=== PATIENT | male | born 1935 | race Caucasian/White ===

== ENCOUNTER 2019-04-28 12:41 | Emergency (ER) | payer MEDICARE, OTHER, SELFPAY ==
[2019-04-28 12:57] VITALS: BP 105/87; PULSE 78; RESP 20; TEMP 37.1; O2SAT 95
--- NOTE | 2019-04-28 13:05 | ED.SKABFB ---
HPI - Skin/Abscess/Foreign Bdy General Chief complaint: Skin/Abscess/Foreign Body Stated complaint: Shingles Source: patient Mode of arrival: ambulatory Limitations: no limitations History of Present Illness HPI narrative: The patient, who is a nonsmoker/ occ drinker with IRDM, presents with 2 day history of red, raised spots that cover the lateral side of his upper LLE. Pt states the spot originally began as a pimple and spread. He notes pain to the area. Pt denies any fever, or recent illness. MD complaint: rash Onset (ago): day(s) (2) Location: LLE (upper) Pain Consistency: constant Associated symptoms: denies other symptoms Related Data Home Medications Medication Instructions Recorded Confirmed fluticasone propionate 50 1 - 2 spray NASAL DAILY PRN ml 03/05/19 04/28/19 mcg/actuation nasal spray,suspension insulin glargine 100 unit/mL See Rx Instructions .ROUTE .COMPLEX 03/05/19 04/28/19 subcutaneous solution insulin syringe-needle U-100 0.3 #100 each 03/05/19 mL 30 gauge x 15/64 loratadine 10 mg tablet 10 mg PO DAILY 03/05/19 04/28/19 metformin 500 mg tablet 500 mg PO TID 03/05/19 04/28/19 omeprazole 20 mg capsule,delayed See Rx Instructions .ROUTE .COMPLEX 03/05/19 04/28/19 release simvastatin 10 mg tablet 10 mg PO .COMPLEX 03/05/19 04/28/19 Allergies Allergy/AdvReac Type Severity Reaction Status Date / Time No Known Allergies Allergy Unknown Verified 09/16/15 13:14 Review of Systems Review of Systems: Narrative: General/Constitutional: Denies: weight loss,fever Eyes: Denies: Redness,discharge Ears/Nose/Throat: Denies: Epistaxis,ear discharge Respiratory: Denies: Hemoptysis Gastrointestinal: Denies: Vomiting, Bleeding-rectal Skin: Denies: eruption Neurologic: Denies: Focal Weakness,Sz Hematologic: Denies: Petechiae/Purpura Psychiatric: Denies: Suicidal ideation All Other Systems: Reviewed and Negative All systems reviewed & are unremarkable except as noted in HPI and below PMFSH Social History Social History Smoking status: Former smoker Alcohol intake: never Gender identity (if verbalized by the patient): Male Comments At time of signature, agree with nursing past medical, surgical, social and family history. There is no relevant family history pertinent to the presenting complaint. Exam Narrative: Exam Narrative: General Appearance: Well-nourished Head: Normocephalic Eye: PERRLA, Conjunctiva clear Ear: External ear normal Nose: Normal nose, Nare clear Mouth/Throat: Normal appearing Neck Exam: Supple Respiratory: Airway patent, No respiratory distress Musculoskeletal: Moves all extremities, Non tender Skin: Warm, Dry ; classic, maroon-red papulovesicular eruption on the left lateral thigh extending distally. Neurological: A&O x3 Psychiatric: Normal mood, Normal affect Course Vital Signs Vital signs: Vital Signs Temperature 98.8 F 04/28/19 12:57 Pulse Rate 78 04/28/19 12:57 Respiratory Rate 04/28/19 12:57 Blood Pressure 105/87 04/28/19 12:57 Pulse Oximetry 95 04/28/19 12:57 Temperature 98.8 F 04/28/19 12:57 Pulse Rate 78 04/28/19 12:57 Respiratory Rate 04/28/19 12:57 Blood Pressure 105/87 04/28/19 12:57 Pulse Oximetry 95 04/28/19 12:57 Discharge Plan Discharge Clinical Impression: Shingles Qualifiers: Herpes zoster complications: without complications Qualified Code(s): B02.9 - Zoster without complications Patient Disposition: Home, Self-Care Condition: Stable Instructions: Shingles (ED) Prescriptions: New prednisone 20 mg tablet 60 mg PO DAILY Qty: 9 RF: 0 valacyclovir [Valtrex] 1 gram tablet 1,000 mg PO TID Qty: 20 RF: 0 acetaminophen-codeine [Tylenol-Codeine #3] 300-30 mg tablet 1 tablet PO Q4H PRN (Reason: pain) Qty: 14 RF: 0 No Action fluticasone propionate [Flonase Allergy Relief] 50 mcg/actuation spr
== END 2019-04-28 13:21 | disposition home or self-care (01) ==
PROVIDERS: Emergency Provider Emergency Medicine; PCP Emergency Medicine
DX: B02.9 Zoster without complications (principal); Z86.73 Personal history of transient ischemic attack (TIA), and cerebral infarction without residual deficits; I25.10 Atherosclerotic heart disease of native coronary artery without angina pectoris; E78.00 Pure hypercholesterolemia, unspecified; I10 Essential (primary) hypertension; K21.9 Gastro-esophageal reflux disease without esophagitis; M19.90 Unspecified osteoarthritis, unspecified site; E11.9 Type 2 diabetes mellitus without complications
CPT/HCPCS: 99213; G0463

== ENCOUNTER 2019-06-12 12:01 | Emergency (ER) | payer MEDICARE, OTHER, SELFPAY ==
[2019-06-12 12:18] VITALS: BP 169/59; PULSE 71; RESP 18; TEMP 36.6; O2SAT 95
--- NOTE | 2019-06-12 13:01 | ED.SKABFB ---
HPI - Skin/Abscess/Foreign Bdy General Chief complaint: Skin/Abscess/Foreign Body Stated complaint: abscess Time Seen by Provider: 06/12/19 12:55 Source: patient and RN notes reviewed Mode of arrival: ambulatory Limitations: no limitations History of Present Illness HPI narrative: 84-year male presents with concern for possible access on his left buttock. Reports noticing it 4 to 5 days ago. Reports he has been dealing with shingles and has been sitting a lot. He denies fever, general malaise, drainage. Denies any change in bowel habits. MD complaint: abscess/boil Related Data Home Medications Medication Instructions Recorded Confirmed fluticasone propionate 50 1 - 2 spray NASAL DAILY PRN ml 03/05/19 04/28/19 mcg/actuation nasal spray,suspension insulin glargine 100 unit/mL See Rx Instructions .ROUTE .COMPLEX 03/05/19 04/28/19 subcutaneous solution insulin syringe-needle U-100 0.3 #100 each 03/05/19 mL 30 gauge x 15/64 loratadine 10 mg tablet 10 mg PO DAILY 03/05/19 04/28/19 metformin 500 mg tablet 500 mg PO TID 03/05/19 04/28/19 omeprazole 20 mg capsule,delayed See Rx Instructions .ROUTE .COMPLEX 03/05/19 04/28/19 release simvastatin 10 mg tablet 10 mg PO .COMPLEX 03/05/19 04/28/19 Allergies Allergy/AdvReac Type Severity Reaction Status Date / Time No Known Allergies Allergy Unknown Verified 09/16/15 13:14 Review of Systems Review of Systems: Narrative: CONSTITUTIONAL: Denies malaise, chills, sweats, or fever. CARDIOVASCULAR: Denies chest pain, palpitations, or edema. RESPIRATORY: Denies cough or dyspnea. GASTROINTESTINAL: Denies diarrhea, bloody, or mucous stools. SKIN: Reports abscess on left buttock MUSCULOSKELETAL: Denies myalgia. All systems reviewed & are unremarkable except as noted in HPI and below PMFSH Past Medical History Medical History Diabetes mellitus HLD (hyperlipidemia) Social History Social History Smoking status: Former smoker Alcohol intake: never Gender identity (if verbalized by the patient): Male Comments At time of signature, agree with nursing past medical, surgical, social and family history. There is no relevant family history pertinent to the presenting complaint Exam Narrative: Exam Narrative: GENERAL: Well-appearing, well-nourished, and in no acute distress. HEAD: Normocephalic, atraumatic. EYES: PERRLA, conjunctivae clear, and EOMI. No nystagmus. ENT: Mucous membranes moist. NECK: Supple. CHEST: No respiratory distress. Clear to auscultation. No bony deformities, no asymmetry. Speaks in full sentences. HEART: Regular rate and rhythm. No murmur heard. Normal peripheral pulses. Capillary refill less than 2 seconds SKIN: Warm, dry. 5 cm area of erythema with 3 cm area of induration to the left buttock no fluctuation noted, no involvement of anus noted, palpable approximately centimeters deep, center scab noted. NEURO: Alert and oriented x3. PSYCH: Normal mood and affect Course Course Emergency Course: Patient is aware of diagnosis, understands and agrees to treatment plan. Anticipatory guidance given. Patient agrees to follow-up as directed and is aware of reasons to seek care at the emergency department. Portions of this record may have been created with voice recognition software Vital Signs Vital signs: Vital Signs Temperature 97.8 F 06/12/19 12:18 Pulse Rate 71 06/12/19 12:18 Respiratory Rate 18 06/12/19 12:18 Blood Pressure 169/59 H 06/12/19 12:18 Pulse Oximetry 95 06/12/19 12:18 Temperature 97.8 F 06/12/19 12:18 Pulse Rate 71 06/12/19 12:18 Respiratory Rate 18 06/12/19 12:18 Blood Pressure 169/59 H 06/12/19 12:18 Pulse Oximetry 95 06/12/19 12:18 Reviewed. MDM - Skin/Abscess/Foreign Bdy MDM Narrative Medical decision making narrative: Exam findings show no acute concerns or changes; patie
== END 2019-06-12 13:17 | disposition home or self-care (01) ==
PROVIDERS: Emergency Provider Nurse Practitioner
DX: L02.31 Cutaneous abscess of buttock (principal); E11.9 Type 2 diabetes mellitus without complications; E78.5 Hyperlipidemia, unspecified; Z87.891 Personal history of nicotine dependence; Z79.4 Long term (current) use of insulin; Z79.84 Long term (current) use of oral hypoglycemic drugs; Z86.73 Personal history of transient ischemic attack (TIA), and cerebral infarction without residual deficits; I25.10 Atherosclerotic heart disease of native coronary artery without angina pectoris; K21.9 Gastro-esophageal reflux disease without esophagitis; M19.90 Unspecified osteoarthritis, unspecified site
CPT/HCPCS: 99213; G0463

== ENCOUNTER 2021-05-08 13:17 | Inpatient (IN) | payer MEDICARE, OTHER, SELFPAY ==
[2021-05-08] VITALS (8 sets, daily range): BP systolic 122–149; BP diastolic 54–93; PULSE 90–110; RESP 20–36; TEMP 36–36.1; O2SAT 85–98
--- NOTE | ~2021-05-08 | XR_ITS ---
EXAMINATION: XR chest 1V portable INDICATION: Cough and shortness of breath TECHNIQUE: Portable AP chest at 1405 hours COMPARISON: 09/09/2015 FINDINGS: Cardiomegaly is noted. There are patchy interstitial and airspace opacities. No pleural eff usion or pneumothorax is identified. The visualized osseous structures are unremarkable. IMPRESSION: 1. Patchy interstitial and airspace opacities consistent with atelectasis and/or pneumonia and/or pul monary edema. 2. Cardiomegaly. Reviewed, dictated and finalized at location B. IMPRESSION: 1. Patchy interstitial and airspace opacities consistent with atelectasis and/o r pneumonia and/or pulmonary edema. 2. Cardiomegaly.
--- NOTE | ~2021-05-08 | XR_ITS ---
EXAMINATION: XR chest 1V portable DATE: 05/12/2021 07:15 INDICATION: Pneumonia TECHNIQUE: frontal view of the chest was obtained. COMPARISON: Chest radiograph and CT dated 05/08/2021 FINDINGS: Increased lucency in the upper lung zones with architectural distortion consistent with emphysema. Re ticular and airspace opacities in the bilateral mid and lower lung zones. No pleural effusion or pneu mothorax. The cardiomediastinal silhouette is normal. IMPRESSION: 1. Slight improvement in opacities in the bilateral mid and lower lung zones consistent with improvin g pulmonary edema and/or pneumonia superimposed over emphysema. Reviewed, dictated and finalized at location A. IMPRESSION: 1. Slight improvement in opacities in the bilateral mid and lower lung zones co nsistent with improving pulmonary edema and/or pneumonia superimposed over emph ysema.
--- NOTE | ~2021-05-08 | CT_ITS ---
EXAMINATION: CTA chest PE protocol EXAM DATE: 05/08/2021 18:54 INDICATION: Sudden shortness of breath. TECHNIQUE: Spiral CTA of the chest (pulmonary arteries) was performed with 100 cc Omnipaque 350 intr avenous contrast injection. Images were acquired during the pulmonary arterial phase. Coronal maxi mum intensity projection 3D-reconstructions were created by the technologist on dedicated workstation . Axial, coronal and sagittal reformatted images were reviewed. The dose-length product (DLP) for t his examination was 677.27 mGy-cm. The exposure was tailored according to patient size (auto mA exp osure control), and iterative reconstruction (ASIR) was used as additional dose reduction technique. Correlation is made to chest x-ray report same date. FINDINGS: The main, central pulmonary arteries are mildly dilated which can indicate elevated pulmona ry arterial pressure, pulmonary arterial hypertension. Pulmonary arteries are well opacified and wit hout intraluminal filling defects. No thoracic aortic dissection. There is moderate amount of left basilar groundglass airspace disease, mild to moderate amount of the right. There is mild emphysema. There is evidence of mild interstitial lung disease. A small perica rdial effusion. Tracheobronchial tree is patent. There is no mediastinal, hilar or axillary lympha denopathy. There is no pneumothorax. There is cardiomegaly. There is mild coronary arterial calc ification, arterial sclerosis. Upper abdomen is unremarkable. There is thoracic spondylosis withou t osteoblastic or osteolytic lesions identified. IMPRESSION: 1. Cardiomegaly. Moderate left basilar, mild to moderate right basilar groundglass airspace disease most suggestive of pulmonary edema. Pneumonia not excludable. 2. Mild interstitial lung disease and emphysema. 3. No pulmonary emboli suspected. Reviewed, dictated and finalized at location G. IMPRESSION: 1. Cardiomegaly. Moderate left basilar, mild to moderate right basilar groundg lass airspace disease most suggestive of pulmonary edema. Pneumonia not excluda ble. 2. Mild interstitial lung disease and emphysema. 3. No pulmonary emboli suspected.
--- NOTE | ~2021-05-08 | XR_ITS ---
EXAMINATION: XR chest 1V portable DATE: 05/13/2021 10:43 INDICATION: Respiratory failure TECHNIQUE: frontal view of the chest was obtained. COMPARISON: Chest radiograph dated 05/12/2021 FINDINGS: Opacities in the left mid and lower lung zone and in the right lower lung zones without significant c hange accounting for slight rightward rotation of the patient in the current study. No pleural effusi on or pneumothorax. Calcified nodule at the right posterior sulcus and in the right upper lobe consis tent with old granulomatous disease. The cardiomediastinal silhouette is normal. IMPRESSION: 1. No change in opacities in the left mid to lower and right lower lung zones consistent with pulmona ry edema and/or pneumonia. Reviewed, dictated and finalized at location A. IMPRESSION: 1. No change in opacities in the left mid to lower and right lower lung zones c onsistent with pulmonary edema and/or pneumonia.
--- NOTE | ~2021-05-08 | NM_ITS ---
EXAMINATION: NM megan stress w perfusion DATE: 05/11/2021 13:01 INDICATION: Abnormal electrocardiogram. TECHNIQUE: Rest images were obtained following intravenous administration of 9.7 mCi Tc99m tetrofosmi n (Myoview). The patient was infused intravenously with Lexiscan (regadenoson). Then, 31.4 mCi Tc99m tetrofosmin (Myoview) was administered intravenously, and stress images were obtained. Data was recon structed into short axis and horizontal and vertical long axis SPECT images. Gated SPECT images were also obtained. COMPARISON: Myocardial perfusion imaging 08/09/2015, chest CT 05/08/2021 FINDINGS: There is no definite reversible or fixed perfusion abnormality to suggest ischemia or infar ction. There is no segmental wall motion abnormality. Left ventricular ejection fraction measures 6 8%. IMPRESSION: 1. No definite ischemia or infarct. 2. Normal left ventricular ejection fraction measuring 68%. Reviewed, dictated and finalized at location A.
--- NOTE | ~2021-05-08 | XR_ITS ---
EXAMINATION: XR chest 1V portable DATE: 05/14/2021 05:39 INDICATION: Acute respiratory failure TECHNIQUE: frontal view of the chest was obtained. COMPARISON: Chest radiograph dated 05/13/2021 FINDINGS: Diffuse increased interstitial pattern in the lungs consistent with mild pulmonary edema. More patchy airspace opacities in left lower lung zone which could represent atelectasis and/or pneumonia. No pn eumothorax or pleural effusion. Calcified nodule projecting over the right hemidiaphragm consistent w ith old granulomatous disease. The cardiomediastinal silhouette is normal. IMPRESSION: 1. Increasing diffuse interstitial pattern consistent with mild pulmonary edema. 2. Persistent more patchy airspace opacities in the left lower lung zone which could represent more a telectasis or pneumonia. Reviewed, dictated and finalized at location A. IMPRESSION: 1. Increasing diffuse interstitial pattern consistent with mild pulmonary edema . 2. Persistent more patchy airspace opacities in the left lower lung zone which could represent more atelectasis or pneumonia.
--- NOTE | 2021-05-08 13:32 | ECG_ITS ---
Measurements Intervals [place] Rate: 106 P: 66 FL: 156 QRS: 117 QRSD: 100 T: -59 QT: 355 QTc: 472 Interpretive Statements SINUS TACHYCARDIA POSSIBLE LEFT ATRIAL ENLARGEMENT [-0.1mV P WAVE IN V1/V2] INDETERMINATE AXIS POSSIBLE ANTERIOR MYOCARDIAL INFARCTION , OF INDETERMINATE AGE [30 ms Q WAVE IN V3/V4, OR R < 0.2 mV IN V4] ANTEROSEPTAL T-WAVE ABNORMALITY, CONSIDER ISCHEMIA MODERATE T-WAVE ABNORMALITY, CONSIDER INFERIOR ISCHEMIA [-0.1+ mV T WAVE IN II/aVF] INFERIOR INFARCTION, POSSIBLY RECENT ABNORMAL ECG NO PREVIOUS ECG AVAILABLE FOR COMPARISON Electronically Signed On 05-08-2021 16:29:55 CDT by Rene Buckley M.D.
[2021-05-08 13:58] LABS: Basophils Absolute Auto 0.1 K/mm3 (0.0-0.1); Basophils Percent Auto 0.9 % (0.2-1.2); Eosinophils Absolute Auto 0.3 K/mm3 (0-0.3); Eosinophils Percent Auto 3.7 % (0-4.4); Hematocrit 48.2 % (42.0-52.0); Hemoglobin 15.3 g/dL (14.0-18.0); Immature Granulocyte Absolute 0.04 K/mm3 (0.00-0.031); Immature Granulocyte Percent A 0.4 % (0-0.5); Lymphocytes Absolute Auto 2.84 K/mm3 (0.9-3.2); Lymphocytes Percent Auto 30.8 % (18.3-44.2); Mean Corpuscular HGB Conc 31.7 g/dl (32-36); Mean Corpuscular Volume 91.5 fl (80-100); Mean Platelet Volume 8.9 fl (7.4-10.4); Monocytes Absolute Auto 0.7 K/mm3 (0.1-0.6); Neutrophils Absolute Auto 5.2 K/mm3 (1.3-6.7); Neutrophils Percent Auto 56.2 % (45.5-73.1); Platelet Count Result 363 k/mm3 (150-375); Red Blood Count 5.27 M/mm3 (4.6-6.20); White Blood Count 9.2 K/mm3 (4.5-10.0)
--- NOTE | 2021-05-08 13:58 | ED.SOB ---
HPI - SOB/Dyspnea General Chief Complaint: Shortness of Breath/Dyspnea Stated Complaint: sob Time Seen by Provider: 05/08/21 13:49 Source: patient Mode of arrival: ambulatory Limitations: no limitations History of Present Illness HPI Narrative: 86-year-old male presents here today with family with complaints of shortness of breath over the last 4 to 5 days. Patient only able to take a few steps without getting short of breath. Patient with chronic runny nose, denies fevers, body aches, sick contacts. Patient denies chest pain. Patient was a smoker for 30 years per her son it was 3 packs a day. Patient denies ever being diagnosed with COPD. Related Data Allergies Allergy/AdvReac Type Severity Reaction Status Date / Time No Known Allergies Allergy Unknown Verified 05/08/21 16:15 Review of Systems Review of Systems: CONSTITUTIONAL: Denies fever, chills, or sweats. EYES: Denies visual changes, redness, or discharge. ENT: Denies rhinorrhea, congestion, sore throat, or otalgia. CARDIOVASCULAR: Denies chest pain, palpitations, or edema. RESPIRATORY: Dyspnea. Denies cough. GASTROINTESTINAL: Denies abdominal pain, nausea, vomiting, or diarrhea. GENITOURINARY: Denies dysuria or hematuria. SKIN: Denies rash or itching. MUSCULOSKELETAL: Denies back pain, joint pain, or myalgia. NEUROLOGIC: Denies headache, numbness, dizziness, or weakness. PSYCHIATRIC: Denies anxiety or depression. [facility] Past Medical History Medical History (Updated 05/08/21 @ 18:49 by Ana Painting APRN) BPH (benign prostatic hyperplasia) Depression with anxiety Diabetes mellitus HLD (hyperlipidemia) Hypertension Presence of stent in artery Seasonal allergies Surgical History Surgical History (Updated 05/08/21 @ 18:16 by Marleny Tracy NP) H/O carotid endarterectomy History of tonsillectomy and adenoidectomy Status post peripheral artery angioplasty with insertion of stent left leg Family History Family History Father Cerebrovascular accident, Onset Age: 56 Mother Family history of malignant neoplasm, Onset Age: 75 Sibling Cerebrovascular accident Family history of malignant neoplasm Social History Social History (Updated 05/08/21 @ 18:16 by Marleny Tracy NP) Social History: He lives with son and [id number]. He is . 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 He is a former smoker. He does not use any alcohol drugs or marijuana. Code status full code Smoking status: Former smoker Alcohol intake: never Gender identity (if verbalized by the patient): Male Exam Narrative: GENERAL: Well-appearing, well-nourished, and in no acute distress. HEAD: Normocephalic, atraumatic. EYES: PERRLA and EOMI. ENT: Nares clear, no rhinorrhea or epistaxis. Mucous membranes moist. Oropharynx without tonsillar hypertrophy exudate or other lesions. Bilateral TMs pearly manning nonbulging NECK: Supple. No adenopathy or masses. No carotid bruits or JVD CHEST: Decreased lung sounds bilaterally with some mild rales noted. No wheezing. HEART: Regular rate and rhythm. No murmur heard. Normal peripheral pulses. ABDOMEN: Soft, nontender, nondistended, normal active bowel sounds. EXTREMITIES: Normal range of motion. No edema. SKIN: Warm, dry, no rash. NEURO: No focal deficits. Alert and oriented x3. PSYCH: Normal mood and affect. Course TRAIN MASTER/PA Physician Supervision Son and patient updated on labs and x-rays. Aware patient is to be admitted. All questions answered. All in agreement with plan of care. Consultations Consultation #1: Consulted hospitalist. Case reviewed. Plan for admission for acute respiratory failure with hypoxia. Date: 05/08/21 Time: 15:10 Vital Signs Vital signs: Vital Signs Temperature 36.1 C L 05/08/21 13:27 Pulse Rate 110 H 05/08/21 13:27 Respiratory Rate 36 H 05/08/21 13:27 Blood Pre
[2021-05-08 14:08] LABS: Alanine Aminotransferase 17 U/L (4-50); Albumin Level 4.3 g/dL (3.5-5.1); Alkaline Phosphatase 64 U/L (38-126); Anion Gap 9 mmol/L (8-16); Aspartate Amino Transferase 26 U/L (17-59); Bilirubin,Total 1.1 mg/dL (0.2-1.3); Blood Urea Nitrogen 21 mg/dL (9-20); Calcium 9.2 mg/dL (8.4-10.2); Carbon Dioxide 27 mmol/L (22-30); Chloride 100 mmol/L (98-107); Estimated CRCL calculation 50 ml/min; Estimated Glomerular Filt Rate > 60; Glucose 193 mg/dL (65-110); Potassium 4.6 mmol/L (3.4-5.0); Sodium 136 mmol/L (137-145)
[2021-05-08] MEDS: ALBUTEROL SULFATE NEB 2.5 MG/0.5 ML INH 5 MG INHALATION (14:14)
[2021-05-08 14:29] LABS: Alveolar/Arterial O2 Gradient 71.5 mmHg; Base Excess ABG -0.5 mEq/l (+/-2.0); Fractional Inspired Oxygen 21 %; HCO3 ABG 21.8 mEq/l (22.0-26.0); PCO2 ABG 29.9 mmHg (35.0-45.0); PO2 FiO2 Ratio Arterial Blood 2.02 %; Total Hemoglobin 15.4 g/dL (12.0-18.0)
[2021-05-08 14:31] LABS: Oxygen Saturation ABG 82.4 % (95.0-100.0); Oxyhemoglobin 78.9 % THb (90.0-100.0); PO2 ABG 42.4 mmHg (80.0-100.0)
[2021-05-08 14:33] LABS: Device ROOM AIR; Modified Allen's Test Pass; Site Drawn RIGHT RADIAL
[2021-05-08 14:48] LABS: Magnesium 1.2 mg/dL (1.6-2.3)
[2021-05-08] MEDS: methylPREDNISolone SOD SUCC 125 MG VIAL IV PUSH (14:48)
[2021-05-08 14:50] LABS: INR 1.2; Partial Thromboplastin Time 27.8 SECONDS (22.3-36.8); Prothrombin Time 14.3 Seconds (11.1-14.7)
[2021-05-08 15:01] LABS: NT Pro B Type Natriuretic Pept 7050 pg/mL (5-100); Troponin I < 0.012 ng/mL (0.000-0.034)
[2021-05-08 15:26] LABS: SARS-CoV-2 RNA PCR Negative
[2021-05-08 15:32] LABS: Lactic Acid Reflex 1.7 mmol/L (0.7-2.1)
[2021-05-08 15:33] LABS: CRP 0.9 mg/dL (<1.0)
[2021-05-08] MEDS: MAGNESIUM SULF 2 GM/WATER 50ML 2 GM/50 ML BAG IVPB ×2 (15:42→21:01)
--- NOTE | 2021-05-08 16:23 | PM.IMHP ---
H&P: HPI History of Present Illness Date/Time: 05/08/21 16:23 this is an 86-year-old male patient who was very hard of hearing. He came to the emergency room complaining of shortness of breath over the last 4-5 days. The patient stated that he could only walk about 8 ft before he became short of breath. He denies any history of any PEs or CHF or COPD. The patient has a chronic runny nose but denies any fevers. Denies any body aches or sick contacts. He denies any chest pain. The patient is currently on oxygen at 4 L per nasal cannula. The patient stated that he does not use this at home. Chest x-ray was read as the following. Patchy interstitial and airspace opacities consistent with atelectasis and/or pneumonia and/or pulmonary edema. 2. Cardiomegaly. The patient was given a nebulizer treatment, Solu-Medrol, Lasix, azithromycin, Rocephin, and magnesium for magnesium level 1.2. Glucose was 193 and then 172. BNP 7050. COVID test is negative. PH 7.480 CO2 was 29.9 O2 saturation 82.4. The patient is being admitted to inpatient services on the date of service 05/08/2021 Chief Complaint: Shortness of breath Review of Systems Review of Systems: All systems reviewed & are unremarkable except as noted in HPI and below Constitutional: Constitutional: Reports as per HPI and Reports no additional constitutional complaints Eyes: Eyes: Reports as per HPI and Reports no additional eye complaints ENT: Reports system reviewed and no additional complaints, except as documented and Reports Normal hearing present Cardiovascular: Cardiovascular: Reports no additional cardiovascular complaints Respiratory: Respiratory: Reports no additional respiratory complaints and Reports no additional respiratory complaints Gastrointestinal: Gastrointestinal: Reports as per HPI and Reports no additional gastrointestinal complaints Musculoskeletal: Musculoskeletal: Reports no additional musculoskeletal complaints Integumentary/Breasts: Skin/Breast: Reports system reviewed and no additional complaints, except as docu and Reports as per HPI Neurologic: Reports system reviewed and no additional complaints, except as documented, Reports as per HPI and Reports Normal hearing present Psychiatric: Psychiatric: Reports no additional psychiatric complaints and Reports as per HPI Endocrine: Endocrine: Reports no additional endocrine complaints Hematologic/Lymphatic: Hematologic/Lymphatic: Reports no additional hematologic/lymphatic complaints Allergic/Immunologic: Allergic/Immunologic: Reports no additional allergic/immunologic complaints [facility] Past Medical History Medical History (Updated 05/08/21 @ 18:24 by Marleny Tracy NP) BPH (benign prostatic hyperplasia) Depression with anxiety Diabetes mellitus HLD (hyperlipidemia) Hypertension Presence of stent in artery Seasonal allergies Surgical History Surgical History (Updated 05/08/21 @ 18:16 by Marleny Tracy NP) H/O carotid endarterectomy History of tonsillectomy and adenoidectomy Status post peripheral artery angioplasty with insertion of stent left leg Family History Family History Father Cerebrovascular accident, Onset Age: 56 Mother Family history of malignant neoplasm, Onset Age: 75 Sibling Cerebrovascular accident Family history of malignant neoplasm Social History Social History (Updated 05/08/21 @ 18:16 by Marleny Tracy NP) Social History: He lives with son and [id number]. He is . 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 He is a former smoker. He does not use any alcohol drugs or marijuana. Code status full code Smoking status: Former smoker Alcohol intake: never Gender identity (if verbalized by the patient): Male Meds Home Medications and Allergies Home Medications Medication Instructions Recorded Confirmed Type metron
[2021-05-08 18:03] LABS: Glucose Point of Care 172 mg/dl (65-105)
--- NOTE | 2021-05-08 19:59 | ECG_ITS ---
Measurements Intervals [place] Rate: 95 P: 69 [place]: 170 QRS: -26 QRSD: 114 T: -20 QT: 410 QTc: 517 Interpretive Statements SINUS RHYTHM WITH OCCASIONAL VENTRICULAR PREMATURE COMPLEXES POSSIBLE LEFT ATRIAL ENLARGEMENT [-0.1mV P WAVE IN V1/V2] INDETERMINATE AXIS INFERIOR MYOCARDIAL INFARCTION , OLD MODERATE T-WAVE ABNORMALITY, CONSIDER ANTERIOR ISCHEMIA [-0.1+ mV T WAVE IN V3/V4] COMPARED TO ECG 05/08/2021 13:36:34 NO SIGNIFICANT DIFFERENCE Electronically Signed On 05-09-2021 8:37:25 CDT by Rik Cooper M.D.
--- NOTE | 2021-05-08 20:31 | PC.NURSE ---
This patient, Cam Lofton, was admitted to 3 [facility] Surg Room 314-01. Patient/family oriented to hospital policies and general routines including ID bracelet, bed and alarms, visiting hours, pain management, procedures, bathroom and other care routines, personal items, smoking policy, room service/diet, and visiting hours. Information on how to activate the Rapid Response Team has been discussed. Patient/Family are encouraged to report perceived risks to care and to ask questions if they do not understand what they are told or what they should do.
[2021-05-08 21:56] LABS: Glucose Point of Care 254 mg/dl (65-105)
[2021-05-08] MEDS: SIMVASTATIN 10 MG TABLET PO (23:52)
[2021-05-08] MEDS: ACETAMINOPHEN 325 MG TABLET 650 MG PO (23:54)
[2021-05-09] VITALS (9 sets, daily range): BP systolic 103–117; BP diastolic 50–65; PULSE 70–80; RESP 16–20; TEMP 36.3–36.5; O2SAT 98–99
--- NOTE | 2021-05-09 | ECHO_ITS ---
Patient Info Name: Cam Lofton Age: 86 years : 1935 Gender: Male Ht: 71 in Wt: 179 lbs BSA: 2.02 m2 HR: 70 bpm BP: 122 / 54 mmHg Heart Rhythm: Sinus Rhythm Technical Quality: Good Exam Date: 05/09/2021 8:27 AM Exam Location: [facility] Pulmonary Patient Status: Inpatient Admit Date: 05/08/2021 Staff Ordering Physician: Marleny Tracy NP Animal [employer] Code Enforcement Officer: BECKY Attending Provider: Gisell Gutierres Referring Physician: Rossana MORELOS; Exam Type: CA echo doppler color flow Study Info Indications J81.0 - Acute pulmonary edema Complete two-dimensional, color flow and Doppler transthoracic echocardiogram is performed. Summary 1. Complete two-dimensional, color flow and Doppler transthoracic echocardiogram is performed. 2. Normal left ventricular size, systolic function with grade 1 diastolic noncompliance. 3. Marked right ventricular enlargement with RV hypokinesia. 4. Right atrial enlargement. 5. No significant valvular pathology. Left Ventricle Left ventricular chamber dimension is normal. Left ventricular systolic function is normal, estimated at 55-60%. The left ventricular diastolic function is grade I diastolic dysfunction. Right Ventricle Right ventricular chamber dimension is severely enlarged. Right ventricular systolic function is reduced. Left Atria Left atrial chamber dimension is normal. Right Atria Right atrial chamber dimension is moderately enlarged. Aortic Valve The aortic valve is normal. Pulmonic Valve The pulmonic valve is normal. Mitral Valve The mitral valve has normal leaflets. Tricuspid Valve The tricuspid valve leaflets are normal. Pericardium/Pleural The pericardium appears normal. Aorta The aortic root size at the sinus of Valsalva is normal. Left Ventricular Outflow Tract Name Value Normal LVOT 2D LVOT Diameter 2.0 cm LVOT Doppler LVOT Peak Gradient 2 mmHg LVOT Mean Gradient 1 mmHg LVOT VTI 19 cm LVOT VTI/AV VTI Ratio 1.0 LVOT Stroke Volume 61 ml LVOT CO 4.4 l/min LVOT CI 2.2 l/min/m2 Pulmonic Valve Name Value Normal PV Doppler PV Peak Gradient 2 mmHg Mitral Valve Name Value Normal MV Doppler MV Decel [place] 575 cm/s2 MV PHT 30 ms MV Area (PHT) 7.3 cm2 4.0-5.0 MV Diastolic Function
[2021-05-09] MEDS: MELATONIN 5 MG TABLET PO (00:36)
[2021-05-09 07:18] LABS: Basophils Percent Auto 0.1 % (0.2-1.2); Hematocrit 43.9 % (42.0-52.0); Hemoglobin 13.9 g/dL (14.0-18.0); Immature Granulocyte Absolute 0.05 K/mm3 (0.00-0.031); Immature Granulocyte Percent A 0.6 % (0-0.5); Lymphocytes Percent Auto 13.3 % (18.3-44.2); Mean Corpuscular HGB Conc 31.7 g/dl (32-36); Mean Corpuscular Hemoglobin 28.8 pg (26-34); Mean Corpuscular Volume 91.1 fl (80-100); Mean Platelet Volume 8.9 fl (7.4-10.4); Monocytes Absolute Auto 0.5 K/mm3 (0.1-0.6); Monocytes Percent Auto 5.2 % (2.6-8.5); Neutrophils Absolute Auto 7.3 K/mm3 (1.3-6.7); Neutrophils Percent Auto 80.8 % (45.5-73.1); Platelet Count Result 327 k/mm3 (150-375); Red Blood Count 4.82 M/mm3 (4.6-6.20); Red Cell Distribution Width 14.6 % (11.5-14.5); White Blood Count 9.1 K/mm3 (4.5-10.0)
[2021-05-09 07:33] LABS: Alanine Aminotransferase 16 U/L (4-50); Alkaline Phosphatase 57 U/L (38-126); Anion Gap 7 mmol/L (8-16); Aspartate Amino Transferase 20 U/L (17-59); Bilirubin,Total 0.7 mg/dL (0.2-1.3); Blood Urea Nitrogen 19 mg/dL (9-20); Calcium 9.3 mg/dL (8.4-10.2); Carbon Dioxide 24 mmol/L (22-30); Chloride 104 mmol/L (98-107); Estimated CRCL calculation 61 ml/min; Estimated Glomerular Filt Rate > 60; Glucose 174 mg/dL (65-110); Magnesium 2.3 mg/dL (1.6-2.3); Potassium 5.2 mmol/L (3.4-5.0); Sodium 135 mmol/L (137-145)
[2021-05-09 08:06] LABS: Glucose Point of Care 179 mg/dl (65-105)
[2021-05-09 08:26] LABS: Thyroid Stimulating Hormone Reflex 0.302 uIU/mL (0.465-4.68)
[2021-05-09 09:01] LABS: Free T4 Free Thyroxine Reflex 1.32 ng/dL (0.78-2.19)
[2021-05-09 09:16] LABS: Hemoglobin A1C 6.9 % (<5.7)
[2021-05-09] MEDS: FLUoxetine HCL 20 MG CAPSULE PO (09:39)
[2021-05-09] MEDS: LOSARTAN POTASSIUM 50 MG TABLET PO (09:39)
[2021-05-09] MEDS: ENOXAPARIN 40 MG/0.4 ML SYRINGE SUB-Q (09:39)
[2021-05-09] MEDS: FUROSEMIDE INJ 40 MG/4 ML VIAL IV PUSH ×2 (09:40→17:33)
[2021-05-09] MEDS: INSULIN GLARGINE (*BKC) 100 UNITS/ML 24 UNITS SUB-Q (09:41)
[2021-05-09] MEDS: LORATADINE 10 MG TABLET PO (09:42)
[2021-05-09 10:20] LABS: Total Triiodothyronine (T3) 0.77 NG/ML (0.97-1.69)
[2021-05-09 12:07] LABS: Glucose Point of Care 186 mg/dl (65-105)
--- NOTE | 2021-05-09 13:52 | PM.IMPN ---
Progress Note: A&P Assessment and Plan (1) CAP (community acquired pneumonia): Code(s): J18.9 - Pneumonia, unspecified organism Status: Acute Assessment and Plan: - Continue azithromycin and Rocephin. - Sputum cultures are pending. - Blood cultures are pending. - Continue Oxygen at 4 L, weaning if able to. - CTA of chest is performed that shows cardiomegaly, mild to moderate right basilar groundglass airspace disease most suggestive of pulmonary edema. Pneumonia is not excludable, however suspicion is low in the setting of no other immediate subjective or objective signs of infection. - ECHO pending. - No PE on CTA. (2) Pulmonary edema: Code(s): J81.1 - Chronic pulmonary edema Status: Acute Assessment and Plan: - ECHO performed and is pending. - Lasix dose increased to 40 mg po BID - Consult Cardiology for new onset Heart Failure suspected. - Will continue to monitor labs and VS. 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 mellitus manager manufacturing insulin use: with snf use Diabetes mellitus complication status: without complication Qualified Code(s): E11.9 - Type 2 diabetes mellitus without complications; Z79.4 - catalogue clerk (current) use of insulin Code(s): E11.9 - Type 2 diabetes mellitus without complications Status: Chronic Assessment and Plan: - Continue SSI - Continue Hypoglycemic protocol - Continue glucose checks AC and HS - Diabetic/Cardiac Diet (4) HLD (hyperlipidemia): Code(s): E78.5 - Hyperlipidemia, unspecified Status: Chronic Assessment and Plan: - Continue statin therapy. (5) Depression with anxiety: Code(s): F41.8 - Other specified anxiety disorders Status: Chronic Assessment and Plan: - Continue Home meds (6) BPH (benign prostatic hyperplasia): Code(s): N40.0 - Benign prostatic hyperplasia without lower urinary tract symptoms Status: Chronic Assessment and Plan: - Continue with tamsulosin. (7) Hypertension: Code(s): I10 - Essential (primary) hypertension Status: Chronic Assessment and Plan: - Continue with losartan. Time Spent With Patient Time with patient: 15 - 25 minutes Subjective Date/time seen: 05/09/21 9903 This pt. was examined at the bedside this morning and he states that he has just had a lot of dyspnea over the past week. He is currently stable on 4L oxygen and diuresis with Lasix was started. He has never been told that he has CHF of any type. He denies any CP, N/V/D, but has noted that he has had minimal swelling lately of his ankles. Review of Systems Review of Systems: A full 12 point ROS was performed at the bedside and is otherwise unremarkable except for what is noted in HPI. All systems reviewed & are unremarkable except as noted in HPI and below Exam Const: General: comfortable and no acute distress HENMT: Mouth: Yes moist mucous membranes Eyes: Sclera: sclerae normal Neck: Neck: supple and no JVD Lymphatic: lymphadenopathy not noted Resp: Auscultation: crackles localized (bilateral bases) Cardio: Rate: regular rate Rhythm: regular rhythm GI: GI Palp: Yes Soft to palpation and No Tenderness to palpation present (GI) Auscultation: normal bowel sounds Skin: General skin exam: normal color and no rashes or lesions noted Neuro: Speech: normal speech Extrem: Right upper extremity: normal to inspection Left upper extremity: normal to inspection Right lower extremity: edema (trace) Details: non-pitting Left lower extremity: edema (Trace) Details: non-pitting Psych: Mental Status: mental status grossly normal Affect: normal affect Thought content: Yes Normal thought content present Objective Data Vital Signs Vital Signs: Vital Signs - 24 hr 05/08/21 14:00 05/08/21 14:41 05/08/21 15:00 Temperature Pulse Rate 96 96 Respiratory Rate 26 H 26 H Blood Pressure 1
[2021-05-09 14:30] LABS: Anion Gap 10 mmol/L (8-16); Blood Urea Nitrogen 24 mg/dL (9-20); Calcium 9.2 mg/dL (8.4-10.2); Carbon Dioxide 23 mmol/L (22-30); Chloride 101 mmol/L (98-107); Estimated CRCL calculation 61 ml/min; Estimated Glomerular Filt Rate > 60; Glucose 164 mg/dL (65-110); Potassium 4.7 mmol/L (3.4-5.0); Sodium 134 mmol/L (137-145)
[2021-05-09 16:54] LABS: Glucose Point of Care 130 mg/dl (65-105)
[2021-05-09] MEDS: PANTOPRAZOLE 40 MG TABLET PO (17:33)
[2021-05-09] MEDS: TAMSULOSIN HCL 0.4 MG CAPSULE PO (17:33)
[2021-05-09] MEDS: MELATONIN 5 MG TABLET 10 MG PO (21:12)
[2021-05-09] MEDS: ACETAMINOPHEN 325 MG TABLET 650 MG PO (21:12)
[2021-05-09] MEDS: SIMVASTATIN 10 MG TABLET PO (21:12)
[2021-05-09 21:45] LABS: Glucose Point of Care 202 mg/dl (65-105)
[2021-05-10] VITALS (12 sets, daily range): BP systolic 104–140; BP diastolic 44–72; PULSE 66–77; RESP 18–20; TEMP 36.2–36.4; O2SAT 92–99
[2021-05-10 08:39] LABS: Glucose Point of Care 106 mg/dl (65-105)
[2021-05-10] MEDS: LOSARTAN POTASSIUM 50 MG TABLET PO (09:38)
[2021-05-10] MEDS: FLUoxetine HCL 20 MG CAPSULE PO (09:38)
[2021-05-10] MEDS: LORATADINE 10 MG TABLET PO (09:38)
[2021-05-10] MEDS: FUROSEMIDE INJ 40 MG/4 ML VIAL IV PUSH ×2 (09:38→17:49)
[2021-05-10] MEDS: ENOXAPARIN 40 MG/0.4 ML SYRINGE SUB-Q (09:38)
[2021-05-10] MEDS: INSULIN GLARGINE (*BKC) 100 UNITS/ML 24 UNITS SUB-Q (09:39)
--- NOTE | 2021-05-10 11:14 | PM.CNCAR ---
Assessment and Plan Additional Plan Elderly 86-year-old man with: Subacute onset of worsening exertional shortness of breath. Does have a longstanding prior history of smoking and has accumulated 90 pack years of smoking. He quit this however about 2 decades ago and is becoming more short of breath air the last several months. He does not describe any other symptoms to suggest heart failure such as orthopnea PND or accumulating edema. He does have significant RV dysfunction on echo which is likely the result of chronic lung disease. The possibility of a right ventricular infarction however certainly cannot be excluded and his ECG does also demonstrate some findings consistent with coronary disease. For this reason I believe we should conduct an ischemia evaluation in the way of a Lexiscan stress test which can happen tomorrow. Further recommendations will be pending those findings. Rik Cooper MD [facility] History of Present Illness History of Present Illness Consult date/time: 05/10/21 11:14 Consult reason: shortness of breath Reason For Visit: Acute hypoxic respiratory failure Narrative: This is an 86-year-old man I am seeing at the request of the hospitalist today because of new onset of congestive heart failure. The patient states he is not known to have any cardiac problems prior to this and his son who is a retired nurse practitioner corroborates this history. The 2 of them live together and he states that the patient has been experiencing increasing shortness of breath for about 1-2 months. This has progressed gradually to the point where he has difficulty walking from 1 room to another in his house without significant air hunger. He is not noticing any symptoms of orthopnea PND or accumulating edema. He is having no chest pain. Because of the worsening dyspnea he finally was brought to the emergency room last evening. His x-ray and chest CT show evidence of chronic interstitial lung disease, emphysema and evidence of cardiomegaly. 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 His echocardiogram demonstrates significant right ventricular enlargement and RV dysfunction, the left ventricle appears to be of good strength and contractility and there is no left-sided valvular disease to speak of. The patient is a former smoker having smoked about 3 packs per day for 30 years earlier in his life but quit more than 2 decades ago. He considers himself otherwise to be in fairly good health for his advanced age. He does have hypertension dyslipidemia, diabetes and a known history of peripheral vascular disease having undergone a left carotid endarterectomy in the past. Review of Systems Constitutional: Constitutional: Reports no additional constitutional complaints Eyes: Eyes: Reports no additional eye complaints ENT: Reports system reviewed and no additional complaints, except as documented Cardiovascular: Cardiovascular: Reports as per HPI Respiratory: Respiratory: Reports as per HPI Gastrointestinal: Gastrointestinal: Reports no additional gastrointestinal complaints Musculoskeletal: Musculoskeletal: Reports back pain Integumentary/Breasts: Skin/Breast: Reports system reviewed and no additional complaints, except as docu Neurologic: Reports system reviewed and no additional complaints, except as documented Endocrine: Endocrine: Reports no additional endocrine complaints Hematologic/Lymphatic: Hematologic/Lymphatic: Reports no additional hematologic/lymphatic complaints Allergic/Immunologic: Allergic/Immunologic: Reports no additional allergic/immunologic complaints [facility] Past Medical History Medical History (Updated 05/08/21 @ 18:49 by Ana Painting, TIFFANIE) BPH (benign prostatic hyperplasia) Depression with anxiety Diabetes mellitus HLD (hyperlipidemia) Hypertension Presence of stent in artery Seasonal allergies Surgical History Surgical His
[2021-05-10 12:16] LABS: Glucose Point of Care 166 mg/dl (65-105)
--- NOTE | 2021-05-10 14:49 | PM.IMPN ---
Progress Note: A&P Assessment and Plan (1) CAP (community acquired pneumonia): Code(s): J18.9 - Pneumonia, unspecified organism Status: Acute Assessment and Plan: - Continue azithromycin and Rocephin. - continue to wean off oxygen - CTA of chest is performed that shows cardiomegaly, mild to moderate right basilar groundglass airspace disease most suggestive of pulmonary edema. Pneumonia is not excludable, however suspicion is low in the setting of no other immediate subjective or objective signs of infection. - ECHO pending. - No PE on CTA. (2) Pulmonary edema: Code(s): J81.1 - Chronic pulmonary edema Status: Acute Assessment and Plan: - ECHO performed and is pending. 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 (5) Depression with anxiety: Code(s): F41.8 - Other specified anxiety disorders Status: Chronic Assessment and Plan: - Continue Home meds (6) BPH (benign prostatic hyperplasia): Code(s): N40.0 - Benign prostatic hyperplasia without lower urinary tract symptoms Status: Chronic Assessment and Plan: - Continue with tamsulosin. (7) Hypertension: Code(s): I10 - Essential (primary) hypertension Status: Chronic Assessment and Plan: - Continue with losartan. Subjective Date/time seen: 05/10/21 14:49 Interval history: 86-year-old male patient who was very hard of hearing. He came to the emergency room complaining of shortness of breath over the last 4-5 days. The patient stated that he could only walk about 8 ft before he became short of breath. Pt had Cxr showing PNEumonia and pulmonary edema, Pt had CT scan and echo. Echo showed grade 1 diastolic, ef 55% and enlarged rv cardiology wanting to do NM stress test tomorrow to rule out right ventricular infarction. Pt is weaning off oxygen from 4 to 2 but will need walk study prior to dc, no other complaints apart from SOB Review of Systems Review of Systems: All systems reviewed & are unremarkable except as noted in HPI and below Exam Const: General: in distress Nutritional Appearance: other (elderly tired sob pleasant man ) Orientation/consciousness: oriented to person HENMT: Head: normal to inspection Resp: Effort & Inspection: no respiratory distress Auscultation: no rhonchi and no wheezes Cardio: Rate: regular rate Rhythm: regular rhythm GI: Inspection: normal to inspection GI Palp: No abdominal tenderness, No Guarding due to palpation present (GI) and No Hepatomegaly present Auscultation: normal bowel sounds Neuro: General: oriented to person Objective Data Vital Signs Vital Signs: Vital Signs - 24 hr 05/09/21 16:00 05/09/21 20:00 05/09/21 22:00 Temperature 36.4 C Pulse Rate 79 70 Respiratory Rate 20 Blood Pressure 117/60 Pulse Oximetry 99 98 05/10/21 00:00 05/10/21 04:00 05/10/21 06:00 Temperature 36.4 C Pulse Rate 69 67 70 Respiratory Rate 20 Blood Pressure 140/72 Pulse Oximetry 99 05/10/21 07:50 05/10/21 08:00 05/10/21 08:18 Temperature Pulse Rate 67 Respiratory Rate 20 Blood Pressure Pulse Oximetry 99 95 95 05/10/21 12:00 05/10/21 14:00 Temperature 36.2 C L
[2021-05-10 17:02] LABS: Glucose Point of Care 125 mg/dl (65-105)
[2021-05-10] MEDS: TAMSULOSIN HCL 0.4 MG CAPSULE PO (17:49)
[2021-05-10] MEDS: PANTOPRAZOLE 40 MG TABLET PO (17:49)
[2021-05-10 21:57] LABS: Glucose Point of Care 106 mg/dl (65-105)
[2021-05-11] VITALS (12 sets, daily range): BP systolic 94–123; BP diastolic 48–60; PULSE 66–101; RESP 16–18; TEMP 36.1–36.3; O2SAT 93–97
--- NOTE | 2021-05-11 | EST_ITS ---
Patient Info Name: Cam Lofton Age: 86 years : 1935 Gender: Male Ht: 71 in Wt: 179 lbs BSA: 2.02 m2 HR: 85 bpm BP: 131 / 81 mmHg Heart Rhythm: Sinus Rhythm Exam Date: 05/11/2021 11:58 AM Exam Location: [facility] Stress Patient Status: Inpatient Admit Date: 05/08/2021 Staff Ordering Physician: Rik Cooper MD Attending Provider: Gisell Gutierres Exercise Technologist: Diana Martinez CT Nurse: filippo perea Exam Type: CA stress megan w NM Study Info Indications R07.9 - Chest pain, unspecified A regadenoson stress test was performed. Summary 1. Baseline ECG Sinus rhythm ST abnormality consider ischemia anterolateral leads, baseline artifact, LAFB. 2. No further ST abnormalities meeting strict criteria for reversible myocardial ischemia compared to baseline. 3. Occasional PVCs. 4. Please correlate with nuclear medicine images, reported separately. 5. No chest discomfort with stress test. Protocol: Lexiscan Stress ECG Details Stage: REST Duration (min): 0 min : 56 sec HR (bpm): 85 SBP (mmHg): 133 DBP (mmHg): 81 Stage: REST Duration (min): 8 min : 55 sec HR (bpm): 87 SBP (mmHg): 133 DBP (mmHg): 81 Stage: STAGE 1 Duration (min): 1 min : 0 sec HR (bpm): 96 SBP (mmHg): 102 DBP (mmHg): 82 Stage: RECOVERY Duration (min): 1 min : 0 sec HR (bpm): 89 SBP (mmHg): 102 DBP (mmHg): 82 Stage: RECOVERY Duration (min): 2 min : 0 sec HR (bpm): 91 SBP (mmHg): 102 DBP (mmHg): 82 Stage: RECOVERY Duration (min): 3 min : 0 sec HR (bpm): 92 SBP (mmHg): 102 DBP (mmHg): 82 Stage: RECOVERY Duration (min): 4 min : 0 sec HR (bpm): 92 SBP (mmHg): 87 DBP (mmHg): 70 Stage: RECOVERY Duration (min): 4 min : 57 sec HR (bpm): 90 SBP (mmHg): 96 DBP (mmHg): 66 Rest HR: 87 bpm Peak HR: 99 bpm Rest Sys BP: 133 mmHg Peak Sys BP: 102 mmHg Max Pred HR: 134 bpm % Max Pred HR: 74 % Target HR: 114 bpm Max RPP: 10,098 bpm*mmHg Termination Reason: Completed protocol Cardiac Symptoms: None Total Time: 1 min : 0 sec Rest Sinha BP: 81 mmHg Peak Sinha BP: 82 mmHg Total Dose: 0.4 mg Resting ECG Baseline ECG Sinus rhythm ST abnormality consider ischemia anterolateral leads, baseline artifact, LAFB. Stress ECG No further ST abnormalities meeting strict criteria for reversible myocardial ischemia compared to baseline. Arrhythmias Occasional PVCs. Report Signatures
[2021-05-11 06:37] LABS: Anion Gap 8 mmol/L (8-16); Blood Urea Nitrogen 32 mg/dL (9-20); Calcium 9.3 mg/dL (8.4-10.2); Carbon Dioxide 34 mmol/L (22-30); Chloride 96 mmol/L (98-107); Estimated CRCL calculation 46 ml/min; Estimated Glomerular Filt Rate > 60; Glucose 107 mg/dL (65-110); Potassium 4.4 mmol/L (3.4-5.0); Sodium 138 mmol/L (137-145)
[2021-05-11 08:07] LABS: Glucose Point of Care 107 mg/dl (65-105)
[2021-05-11] MEDS: LORATADINE 10 MG TABLET PO (10:37)
[2021-05-11] MEDS: FUROSEMIDE INJ 40 MG/4 ML VIAL IV PUSH (10:37)
[2021-05-11] MEDS: LOSARTAN POTASSIUM 50 MG TABLET PO (10:37)
[2021-05-11] MEDS: FLUoxetine HCL 20 MG CAPSULE PO (10:37)
[2021-05-11] MEDS: ENOXAPARIN 40 MG/0.4 ML SYRINGE SUB-Q (10:37)
--- NOTE | 2021-05-11 12:16 | PM.PNCARD ---
Progress Note: A&P Assessment and Plan (1) Acute respiratory failure with hypoxia: Code(s): J96.01 - Acute respiratory failure with hypoxia <HAIM Bonilla - Last Filed: 05/11/21 15:22> Status: Acute <Kady GibbsHAIM longoria - Last Filed: 05/11/21 15:22> Assessment and Plan: Presented with a chief complaint of worsening shortness of breath over the past several months. Currently being treated for pneumonia and is being diuresed which has resulted in improvement of symptoms. Oxygen requirements down to 2L today. <HAIM Bonilla - Last Filed: 05/11/21 15:22> (2) Pulmonary edema: Qualifiers: Chronicity: acute Qualified Code(s): J81.0 - Acute pulmonary edema <HAIM Bonilla - Last Filed: 05/11/21 15:22> Code(s): J81.1 - Chronic pulmonary edema <HAIM Bonilla - Last Filed: 05/11/21 15:22> Status: Acute <Kady Daniel HAIM Brown - Last Filed: 05/11/21 15:22> Assessment and Plan: He does have some diastolic noncompliance on echo as well as RV dysfunction. LV function is normal. Seems to be improving with diuresis. Continue furosemide 40mg IV b.i.d. for now, probably shift him to oral furosemide tomorrow. <HAIM Bonilla - Last Filed: 05/11/21 15:22> (3) CAP (community acquired pneumonia): Qualifiers: Laterality: unspecified laterality Qualified Code(s): J18.9 - Pneumonia, unspecified organism <HAIM Bonilla - Last Filed: 05/11/21 15:22> Code(s): J18.9 - Pneumonia, unspecified organism <HAIM Bonilla - Last Filed: 05/11/21 15:22> Status: Acute <HAIM Bonilla - Last Filed: 05/11/21 15:22> Assessment and Plan: Receiving antibiotics. Management per primary service. <HAIM Bonilla - Last Filed: 05/11/21 15:22> (4) Hypertension: Qualifiers: Hypertension type: unspecified Qualified Code(s): I10 - Essential (primary) hypertension <HAIM Bonilla - Last Filed: 05/11/21 15:22> Code(s): I10 - Essential (primary) hypertension <HAIM Bonilla - Last Filed: 05/11/21 15:22> Status: Chronic <HAIM Bonilla - Last Filed: 05/11/21 15:22> Assessment and Plan: At goal generally and mildly hypotensive today. Continue current regimen. <HAIM Bonilla - Last Filed: 05/11/21 15:22> (5) Abnormal EKG: Code(s): R94.31 - Abnormal electrocardiogram [ECG] [EKG] <HAIM Bonilla - Last Filed: 05/11/21 15:22> Status: Acute <HAIM Bonilla - Last Filed: 05/11/21 15:22> Assessment and Plan: ECG demonstrates some findings consistent with coronary disease and he does have risk factors for CAD as well. He did undergo a nuclear stress test today which was negative for any ischemia or infarct. <HAIM Bonilla - Last Filed: 05/11/21 15:22> Additional Plan Attending addendum: I agree with the above documentation and plan of care as outlined. <Parag Gutierrez MD - Last Filed: 05/11/21 17:00> Subjective Date/time seen: 05/11/21 12:16 Cardiology follow up for shortness of breath He is feeling well today, denies any shortness of breath. Does not have any chest pain or palpitation. No complaints of any kind. <HAIM Bonilla - Last Filed: 05/11/21 15:22> Review of Systems Constitutional: Constitutional: Reports no additional constitutional complaints <HAIM Bonilla - Last Filed: 05/11/21 15:22> Eyes: Eyes: Reports no additional eye complaints <HAIM Bonilla - Last Filed: 05/11/21 15:22> ENT: Reports system reviewed and no additional complaints, except as documented <HAIM Bonilla - Last Filed: 05/11/21 15:22> Cardiovascular: Cardiovascular: Reports as per HPI <HAIM Bonilla - Last Filed: 05/11/21 15:22> Respiratory: Respiratory: Reports as per HPI
--- NOTE | 2021-05-11 12:46 | PM.IMPN ---
Progress Note: A&P Assessment and Plan (1) CAP (community acquired pneumonia): Qualifiers: Laterality: unspecified laterality Qualified Code(s): J18.9 - Pneumonia, unspecified organism Code(s): J18.9 - Pneumonia, unspecified organism Status: Acute Assessment and Plan: - Continue azithromycin and Rocephin. - continue to wean off oxygen - CTA of chest is performed that shows cardiomegaly, mild to moderate right basilar groundglass airspace disease most suggestive of pulmonary edema. Pneumonia is not excludable, however suspicion is low in the setting of no other immediate subjective or objective signs of infection. - ECHO performed, Lexiscan ordered for today and is pending result. - No PE on CTA. (2) Pulmonary edema: Qualifiers: Chronicity: acute Qualified Code(s): J81.0 - Acute pulmonary edema Code(s): J81.1 - Chronic pulmonary edema Status: Acute Assessment and Plan: - Lasix dose increased to 40 mg po BID - Pt to have NM stress test today. 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 insulin use: with senior care use Diabetes mellitus complication status: without complication Qualified Code(s): E11.9 - Type 2 diabetes mellitus without complications; Z79.4 - parts counterman (current) use of insulin Code(s): E11.9 - Type 2 diabetes mellitus without complications Status: Chronic Assessment and Plan: - Continue SSI - Continue Hypoglycemic protocol - Continue glucose checks AC and HS - Diabetic/Cardiac Diet (4) HLD (hyperlipidemia): Qualifiers: Hyperlipidemia type: unspecified Qualified Code(s): E78.5 - Hyperlipidemia, unspecified Code(s): E78.5 - Hyperlipidemia, unspecified Status: Chronic Assessment and Plan: - Continue statin therapy. (5) Depression with anxiety: Code(s): F41.8 - Other specified anxiety disorders Status: Chronic Assessment and Plan: - Continue Home meds (6) BPH (benign prostatic hyperplasia): Qualifiers: Lower urinary tract symptom presence: symptoms absent Qualified Code(s): N40.0 - Benign prostatic hyperplasia without lower urinary tract symptoms Code(s): N40.0 - Benign prostatic hyperplasia without lower urinary tract symptoms Status: Chronic Assessment and Plan: - Continue with tamsulosin. (7) Hypertension: Qualifiers: Hypertension type: unspecified Qualified Code(s): I10 - Essential (primary) hypertension Code(s): I10 - Essential (primary) hypertension Status: Chronic Assessment and Plan: - Continue with losartan. - Monitor VS. Time Spent With Patient Time with patient: 15 - 25 minutes Subjective Date/time seen: 05/11/21 1020 This pt. was examined at the bedside in interval assessment of his heart failure and his concurrent PNA. He is to have a Lexiscan stress test today. He is being followed and managed by Cardiology for his heart failure. ECHO was performed and showed Grade 1 diastolic dysfunction as well as normal LVSF with EF of 55-60%, right ventricular dysfunction, as well as EKG that does show findings consistent with CAD. Further recs from Cardiology. He denies any CP, N/V/D/Urological symptoms. He does however continue to complain of having Dyspnea and remains on 2L oxygen at this time. Review of Systems Review of Systems: A full 12 point ROS was performed and is otherwise unremarkable with exception of what is noted in HPI. All systems reviewed & are unremarkable except as noted in HPI and below Exam Const: General: comfortable and no acute distress HENMT: Mouth: Yes moist mucous membranes Eyes: Sclera: sclerae normal Neck: Neck: supple and no JVD Resp: Auscultation: rales and rhonchi Cardio: Rate: regular rate Rhythm: regular rhythm GI: GI Palp: Yes Soft to palpation and No Tenderness to palpation pres
[2021-05-11] MEDS: INSULIN GLARGINE (*BKC) 100 UNITS/ML 24 UNITS SUB-Q (13:09)
[2021-05-11 13:34] LABS: Glucose Point of Care 134 mg/dl (65-105)
--- NOTE | 2021-05-11 15:15 | WPDCDIQUERY2 ---
CDI Query Clarification Request 05/08 ER physician documented: Clinical Impression: -Acute respiratory failure with hypoxia -05/08 Hospitalist documented: -Chest x-ray was read as the following. Patchy interstitial and airspace opacities consistent with atelectasis and/or pneumonia and/or pulmonary edema. Please clarify if diagnosis Acute Respiratory Failure with hypoxia has been ruled in or ruled out or unable to determine <Patria Cadena - Last Filed: 05/11/21 15:22> Clarified Diagnosis (1) Acute respiratory failure with hypoxia: Code(s): J96.01 - Acute respiratory failure with hypoxia <Patria Cadena - Last Filed: 05/11/21 15:22> Status: Acute <Patria Cadena - Last Filed: 05/11/21 15:22> Assessment and Plan: - Pt. meets acute respiratory failure with hypoxia with low oxygen saturations on presentation - Continue supplemental oxygen - Wean oxygen as able to <HAIM Singh - Last Filed: 05/11/21 15:28>
[2021-05-11 16:36] LABS: Glucose Point of Care 166 mg/dl (65-105)
[2021-05-11] MEDS: TAMSULOSIN HCL 0.4 MG CAPSULE PO (17:31)
[2021-05-11] MEDS: PANTOPRAZOLE 40 MG TABLET PO (17:31)
[2021-05-11] MEDS: SIMVASTATIN 10 MG TABLET PO (20:36)
[2021-05-11 21:27] LABS: Glucose Point of Care 112 mg/dl (65-105)
[2021-05-12] VITALS (15 sets, daily range): BP systolic 96–103; BP diastolic 47–61; PULSE 78–93; RESP 16–18; TEMP 36.1–36.6; O2SAT 85–98
[2021-05-12 06:20] LABS: Basophils Absolute Auto 0.1 K/mm3 (0.0-0.1); Basophils Percent Auto 0.6 % (0.2-1.2); Eosinophils Absolute Auto 0.5 K/mm3 (0-0.3); Eosinophils Percent Auto 5.3 % (0-4.4); Hematocrit 46.8 % (42.0-52.0); Immature Granulocyte Absolute 0.02 K/mm3 (0.00-0.031); Immature Granulocyte Percent A 0.2 % (0-0.5); Lymphocytes Absolute Auto 3.06 K/mm3 (0.9-3.2); Lymphocytes Percent Auto 32.6 % (18.3-44.2); Mean Corpuscular HGB Conc 32.1 g/dl (32-36); Mean Corpuscular Hemoglobin 28.9 pg (26-34); Mean Corpuscular Volume 90.2 fl (80-100); Mean Platelet Volume 8.6 fl (7.4-10.4); Monocytes Percent Auto 10.8 % (2.6-8.5); Neutrophils Absolute Auto 4.7 K/mm3 (1.3-6.7); Neutrophils Percent Auto 50.5 % (45.5-73.1); Platelet Count Result 292 k/mm3 (150-375); Red Blood Count 5.19 M/mm3 (4.6-6.20); Red Cell Distribution Width 14.4 % (11.5-14.5); White Blood Count 9.4 K/mm3 (4.5-10.0)
[2021-05-12 06:39] LABS: Alanine Aminotransferase 25 U/L (4-50); Albumin Level 4.2 g/dL (3.5-5.1); Alkaline Phosphatase 63 U/L (38-126); Anion Gap 10 mmol/L (8-16); Aspartate Amino Transferase 31 U/L (17-59); Blood Urea Nitrogen 38 mg/dL (9-20); Calcium 8.9 mg/dL (8.4-10.2); Carbon Dioxide 30 mmol/L (22-30); Chloride 94 mmol/L (98-107); Estimated CRCL calculation 42 ml/min; Estimated Glomerular Filt Rate 57; Glucose 110 mg/dL (65-110); Magnesium 1.8 mg/dL (1.6-2.3); Potassium 4.1 mmol/L (3.4-5.0); Sodium 134 mmol/L (137-145)
[2021-05-12 08:16] LABS: Glucose Point of Care 122 mg/dl (65-105)
[2021-05-12] MEDS: INSULIN GLARGINE (*BKC) 100 UNITS/ML 24 UNITS SUB-Q (08:20)
[2021-05-12] MEDS: FLUoxetine HCL 20 MG CAPSULE PO (08:23)
[2021-05-12] MEDS: FUROSEMIDE 40 MG TABLET PO ×2 (08:23→17:01)
[2021-05-12] MEDS: LORATADINE 10 MG TABLET PO (08:23)
[2021-05-12] MEDS: ENOXAPARIN 40 MG/0.4 ML SYRINGE SUB-Q (08:24)
[2021-05-12] MEDS: LOSARTAN POTASSIUM 50 MG TABLET PO (08:24)
--- NOTE | 2021-05-12 08:35 | PM.PNCARD ---
Progress Note: A&P Assessment and Plan (1) Acute respiratory failure with hypoxia: Code(s): J96.01 - Acute respiratory failure with hypoxia Status: Acute Assessment and Plan: Presented with a chief complaint of worsening shortness of breath over the past several months. Currently being treated for pneumonia and is being diuresed which has resulted in improvement of symptoms. Oxygen requirements are minimal. (2) Pulmonary edema: Qualifiers: Chronicity: acute Qualified Code(s): J81.0 - Acute pulmonary edema Code(s): J81.1 - Chronic pulmonary edema Status: Acute Assessment and Plan: He does have some diastolic noncompliance on echo as well as RV dysfunction. LV function is normal. Seems to be improving with diuresis. Will transition him to oral furosemide today. (3) CAP (community acquired pneumonia): Qualifiers: Laterality: unspecified laterality Qualified Code(s): J18.9 - Pneumonia, unspecified organism Code(s): J18.9 - Pneumonia, unspecified organism Status: Acute Assessment and Plan: Receiving antibiotics. Management per primary service. (4) Hypertension: Qualifiers: Hypertension type: unspecified Qualified Code(s): I10 - Essential (primary) hypertension Code(s): I10 - Essential (primary) hypertension Status: Chronic Assessment and Plan: At goal generally and mildly hypotensive today. Continue current regimen. (5) Abnormal EKG: Code(s): R94.31 - Abnormal electrocardiogram [ECG] [EKG] Status: Acute Assessment and Plan: ECG demonstrates some findings consistent with coronary disease and he does have risk factors for CAD as well. He did undergo a nuclear stress test yesterday which was negative for any ischemia or infarct. Additional Plan Patient does not have any acute cardiac issues currently. Thank you for asking us to be involved in the care of this patient. Cardiology will sign off for now. Please call with questions. Subjective Date/time seen: 05/12/21 08:35 Cardiology follow up for shortness of breath Feels well this morning and is without any complaints. He denies shortness of breath or chest pain. Discussed results of lexiscan stress test Review of Systems Constitutional: Constitutional: Reports no additional constitutional complaints Eyes: Eyes: Reports no additional eye complaints ENT: Reports system reviewed and no additional complaints, except as documented Cardiovascular: Cardiovascular: Reports as per HPI Respiratory: Respiratory: Reports as per HPI Gastrointestinal: Gastrointestinal: Reports no additional gastrointestinal complaints Musculoskeletal: Musculoskeletal: Reports back pain Integumentary/Breasts: Skin/Breast: Reports system reviewed and no additional complaints, except as docu Neurologic: Reports system reviewed and no additional complaints, except as documented Endocrine: Endocrine: Reports no additional endocrine complaints Hematologic/Lymphatic: Hematologic/Lymphatic: Reports no additional hematologic/lymphatic complaints Allergic/Immunologic: Allergic/Immunologic: Reports no additional allergic/immunologic complaints Exam Const: General: comfortable and no acute distress HENMT: Mouth: Yes moist mucous membranes Eyes: Sclera: sclerae normal Pupils: Equal, round and reactive pupils present Neck: Neck: supple and no JVD Resp: Effort & Inspection: normal respiratory effort Auscultation: diminished lung sounds Cardio: Rate: regular rate Rhythm: regular rhythm Heart sounds: S1 normal heart sound present, S2 normal heart sound present and no murmurs GI: Auscultation: normal bowel sounds Skin: General skin exam: normal color Neuro: Cranial nerves: Yes Equal, round and reactive pupils present Cognition (Neuro): normal cognition Extrem: Other: No edema adequate distal perfusion Objective Data Vital Signs Vital Sign
--- NOTE | 2021-05-12 10:04 | PM.IMPN ---
Progress Note: A&P Assessment and Plan (1) Acute respiratory failure with hypoxia: Code(s): J96.01 - Acute respiratory failure with hypoxia Status: Acute Assessment and Plan: - Pt. meets acute respiratory failure with hypoxia with low oxygen saturations on presentation - Continue supplemental oxygen - Wean oxygen as able to - Home oxygen evaluation today. Additional Plan Progress Note: A&P Assessment and Plan (1) CAP (community acquired pneumonia): Qualifiers: Laterality: unspecified laterality Qualified Code(s): J18.9 - Pneumonia, unspecified organism Code(s): J18.9 - Pneumonia, unspecified organism Status: Acute Assessment and Plan: - Continue azithromycin and Rocephin. - continue to wean off oxygen - CTA of chest is performed that shows cardiomegaly, mild to moderate right basilar groundglass airspace disease most suggestive of pulmonary edema. Pneumonia is not excludable, however suspicion is low in the setting of no other immediate subjective or objective signs of infection. - ECHO performed, Lexiscan ordered for today and is pending result. - No PE on CTA. - CXR today shows mild improvement in opacities in the bilateral mid and lower lung zones consistent with improving Pulmonary edema and/or PNA superimposed over emphysema. - His blood cultures are positive for Turicella Otiditis x2, in which the susceptibility is currently pending, however, it is most often sensitive to Beta-Lactams, so we will continue with Rocephin. (2) Pulmonary edema: Qualifiers: Chronicity: acute Qualified Code(s): J81.0 - Acute pulmonary edema Code(s): J81.1 - Chronic pulmonary edema Status: Acute Assessment and Plan: - Lasix dose increased to 40 mg po BID - Pts Lexiscan stress test yesterday was negative for any acute ischemia. - Lasix is switched from IVP to oral today. - Cardiology continuing to follow. 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 exterminator insulin use: with vermin exterminator use Diabetes mellitus complication status: without complication Qualified Code(s): E11.9 - Type 2 diabetes mellitus without complications; Z79.4 - medical terminologist (current) use of insulin Code(s): E11.9 - Type 2 diabetes mellitus without complications Status: Chronic Assessment and Plan: - Continue SSI - Continue Hypoglycemic protocol - Continue glucose checks AC and HS - Diabetic/Cardiac Diet (4) HLD (hyperlipidemia): Qualifiers: Hyperlipidemia type: unspecified Qualified Code(s): E78.5 - Hyperlipidemia, unspecified Code(s): E78.5 - Hyperlipidemia, unspecified Status: Chronic Assessment and Plan: - Continue statin therapy. (5) Depression with anxiety: Code(s): F41.8 - Other specified anxiety disorders Status: Chronic Assessment and Plan: - Continue Home meds (6) BPH (benign prostatic hyperplasia): Qualifiers: Lower urinary tract symptom presence: symptoms absent Qualified Code(s): N40.0 - Benign prostatic hyperplasia without lower urinary tract symptoms Code(s): N40.0 - Benign prostatic hyperplasia without lower urinary tract symptoms Status: Chronic Assessment and Plan: - Continue with tamsulosin. (7) Hypertension: Qualifiers: Hypertension type: unspecified Qualified Code(s): I10 - Essential (primary) hypertension Code(s): I10 - Essential (primary) hypertension Status: Chronic Assessment and Plan: - Continue with losartan. - Monitor VS. Time Spent With Patient Time with patient: 15 - 25 minutes Subjective Date/time seen: 05/12/21 5535 This very pleasant elderly male patient was examined at the bedside today in follow up of his current PNA and CHF. He has been unable to be weaned from his oxygen to this point. He has no complaints of pain, but does endorse some occasional dyspnea.
[2021-05-12 11:52] LABS: Glucose Point of Care 184 mg/dl (65-105)
--- NOTE | 2021-05-12 15:46 | HOMEO2EVAL ---
Evaluation was performed at [facility] Home Oxygen Evaluation RC: Home Oxygen (O2) Evaluation Start: 05/12/21 07:00 Freq: ONCE Status: Active Protocol: RPE Activity Type Activity Date Activity User E-Sign Co-Sign Detail Recorded Client Recorded Date Recorded By Document 05/12/21 14:20 CINDY [email or web address] 05/12/21 15:46 CINDY Document 05/12/21 14:25 CINDY [email or web address] 05/12/21 15:46 CINDY Document 05/12/21 14:26 CINDY [email or web address] 05/12/21 15:46 CINDY Document 05/12/21 14:30 CINDY [email or web address] 05/12/21 15:46 CINDY Document 05/12/21 14:35 CINDY [email or web address] 05/12/21 15:46 CINDY 05/12/21 05/12/21 05/12/21 14:20 14:25 14:26 Home O2 Evaluation Test Phase Resting Resting Resting Oxygen Delivery Room Air Nasal Cannula Nasal Cannula Oxygen Flow Rate (L/min) 1 2 Pulse Oximetry (90-100 %) 85 L 87 L 93 Home Oxygen Evaluation Comments Treatment Charges O2 Evaluation - Inpatient 05/12/21 05/12/21 14:30 14:35 Home O2 Evaluation Test Phase Exercise Resting Oxygen Delivery Nasal Cannula Nasal Cannula Oxygen Flow Rate (L/min) 2 2 Pulse Oximetry (90-100 %) 90 93 Home Oxygen Evaluation Comments PT REQUIRES 2 L WITH REST AND WITH EXERTION/ ACTIVITY Treatment Charges
[2021-05-12] MEDS: TAMSULOSIN HCL 0.4 MG CAPSULE PO (15:47)
[2021-05-12] MEDS: PANTOPRAZOLE 40 MG TABLET PO (15:48)
--- NOTE | 2021-05-12 16:01 | PCRCNOTE ---
WILL SET HOME O2 UP WITH [facility]. WILL TAKE PT TANK TO ROOM UPON DISCHARGE. [facility] [place] PHONE # [phone] 2 L REST AND WITH ACTIVITY
[2021-05-12 16:51] LABS: Glucose Point of Care 95 mg/dl (65-105)
[2021-05-12] MEDS: SIMVASTATIN 10 MG TABLET PO (20:33)
[2021-05-12 21:05] LABS: Glucose Point of Care 203 mg/dl (65-105)
[2021-05-13] VITALS (11 sets, daily range): BP systolic 91–127; BP diastolic 53–60; PULSE 70–85; RESP 16–22; TEMP 36.2–36.3; O2SAT 93–97
[2021-05-13 06:52] LABS: Basophils Absolute Auto 0.1 K/mm3 (0.0-0.1); Basophils Percent Auto 0.7 % (0.2-1.2); Eosinophils Absolute Auto 0.6 K/mm3 (0-0.3); Eosinophils Percent Auto 6.2 % (0-4.4); Hematocrit 45.3 % (42.0-52.0); Hemoglobin 14.8 g/dL (14.0-18.0); Immature Granulocyte Absolute 0.03 K/mm3 (0.00-0.031); Immature Granulocyte Percent A 0.3 % (0-0.5); Lymphocytes Absolute Auto 3.36 K/mm3 (0.9-3.2); Lymphocytes Percent Auto 34.7 % (18.3-44.2); Mean Corpuscular HGB Conc 32.7 g/dl (32-36); Mean Corpuscular Hemoglobin 28.8 pg (26-34); Mean Corpuscular Volume 88.1 fl (80-100); Mean Platelet Volume 9.1 fl (7.4-10.4); Monocytes Percent Auto 10.1 % (2.6-8.5); Neutrophils Absolute Auto 4.6 K/mm3 (1.3-6.7); Platelet Count Result 308 k/mm3 (150-375); Red Blood Count 5.14 M/mm3 (4.6-6.20); Red Cell Distribution Width 13.7 % (11.5-14.5); White Blood Count 9.7 K/mm3 (4.5-10.0)
[2021-05-13 06:55] LABS: Alanine Aminotransferase 24 U/L (4-50); Albumin Level 3.9 g/dL (3.5-5.1); Alkaline Phosphatase 58 U/L (38-126); Anion Gap 6 mmol/L (8-16); Aspartate Amino Transferase 32 U/L (17-59); Bilirubin,Total 0.8 mg/dL (0.2-1.3); Blood Urea Nitrogen 48 mg/dL (9-20); Calcium 8.5 mg/dL (8.4-10.2); Carbon Dioxide 30 mmol/L (22-30); Chloride 95 mmol/L (98-107); Estimated CRCL calculation 46 ml/min; Estimated Glomerular Filt Rate > 60; Glucose 118 mg/dL (65-110); Magnesium 2.1 mg/dL (1.6-2.3); Potassium 3.8 mmol/L (3.4-5.0); Sodium 131 mmol/L (137-145)
[2021-05-13 07:48] LABS: Glucose Point of Care 125 mg/dl (65-105)
[2021-05-13 08:11] LABS: Glucose Point of Care 120 mg/dl (65-105)
[2021-05-13] MEDS: FLUoxetine HCL 20 MG CAPSULE PO (08:34)
[2021-05-13] MEDS: LORATADINE 10 MG TABLET PO (08:34)
[2021-05-13] MEDS: FUROSEMIDE 40 MG TABLET PO ×2 (08:34→16:07)
[2021-05-13] MEDS: ENOXAPARIN 40 MG/0.4 ML SYRINGE SUB-Q (08:34)
[2021-05-13] MEDS: INSULIN GLARGINE (*BKC) 100 UNITS/ML 24 UNITS SUB-Q (08:36)
--- NOTE | 2021-05-13 09:00 | PC.NURSE ---
0900 Joan Lima notified of bp 90/60 this am and chris held this am
--- NOTE | 2021-05-13 09:56 | PM.IMPN ---
Progress Note: A&P Assessment and Plan (1) Acute respiratory failure with hypoxia: Code(s): J96.01 - Acute respiratory failure with hypoxia Status: Acute Assessment and Plan: - Pt. meets acute respiratory failure with hypoxia with low oxygen saturations on presentation - Continue supplemental oxygen - Wean oxygen as able to - Home oxygen evaluation today. Additional Plan Progress Note: A&P Assessment and Plan (1) CAP (community acquired pneumonia): Qualifiers: Laterality: unspecified laterality Qualified Code(s): J18.9 - Pneumonia, unspecified organism Code(s): J18.9 - Pneumonia, unspecified organism Status: Acute Assessment and Plan: -. stop Azithromycin and Rocephin 05/09/2021 to 05/13/2021). Start doxycycline. Finish a full 10 day cours - continue to wean off oxygen - CTA of chest is performed that shows cardiomegaly, mild to moderate right basilar groundglass airspace disease most suggestive of pulmonary edema. Pneumonia is not excludable, however suspicion is low in the setting of no other immediate subjective or objective signs of infection. - ECHO performed, revealed an LVEF of 55-60% with grade 1 diastolic noncompliance. RV hypokinesis. - No PE on CTA. -repeat chest x-ray on 05/14/2021 - His blood cultures are positive for Turicella Otiditis in aerobic bottle, which is almost exclusively found in the external ear ear canal and middle ear fluid? Repeat blood cultures, deescalate antibiotics (2) Pulmonary edema: Qualifiers: Chronicity: acute Qualified Code(s): J81.0 - Acute pulmonary edema Code(s): J81.1 - Chronic pulmonary edema Status: Acute Assessment and Plan: - Lasix dose increased to 40 mg po BID. IV furosemide stopped on 05/12/2021 - Pts Lexiscan stress test yesterday was negative for any acute ischemia. - Cardiology continuing to follow. 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 mellitus truck terminal manager insulin use: with detention use Diabetes mellitus complication status: without complication Qualified Code(s): E11.9 - Type 2 diabetes mellitus without complications; Z79.4 - halfway (current) use of insulin Code(s): E11.9 - Type 2 diabetes mellitus without complications Status: Chronic Assessment and Plan: - Continue SSI - Continue Hypoglycemic protocol - Continue glucose checks AC and HS - Diabetic/Cardiac Diet (4) HLD (hyperlipidemia): Qualifiers: Hyperlipidemia type: unspecified Qualified Code(s): E78.5 - Hyperlipidemia, unspecified Code(s): E78.5 - Hyperlipidemia, unspecified Status: Chronic Assessment and Plan: - Continue statin therapy. (5) Depression with anxiety: Code(s): F41.8 - Other specified anxiety disorders Status: Chronic Assessment and Plan: - Continue Home meds (6) BPH (benign prostatic hyperplasia): Qualifiers: Lower urinary tract symptom presence: symptoms absent Qualified Code(s): N40.0 - Benign prostatic hyperplasia without lower urinary tract symptoms Code(s): N40.0 - Benign prostatic hyperplasia without lower urinary tract symptoms Status: Chronic Assessment and Plan: - Continue with tamsulosin. (7) Hypertension: Qualifiers: Hypertension type: unspecified Qualified Code(s): I10 - Essential (primary) hypertension Code(s): I10 - Essential (primary) hypertension Status: Chronic Assessment and Plan: - Continue with losartan. - Monitor VS. Subjective Date/time seen: 05/13/21 09:56 Patient is alert to self. Disoriented to time place. He is extremely did hard of hearing. One positive blood culture, repeat blood cultures. Continue antibiotics. Continues to receive furosemide for pulmonary edema. Currently on oxygen, 2 L per nasal cannula SpO2 93%. Patient does not wear home oxygen. Review of Systems Review of S
[2021-05-13 10:48] LABS: NT Pro B Type Natriuretic Pept 308 pg/mL (5-100)
[2021-05-13 12:04] LABS: Glucose Point of Care 158 mg/dl (65-105)
[2021-05-13] MEDS: DOXYCYCLINE HYCLATE 100 MG TABLET PO ×2 (13:18→20:35)
[2021-05-13] MEDS: ARTIFICIAL TEARS OPHTH SOLN 15 ML BOTTLE 1 DROP EACH EYE (15:33)
[2021-05-13] MEDS: PANTOPRAZOLE 40 MG TABLET PO (16:06)
[2021-05-13] MEDS: TAMSULOSIN HCL 0.4 MG CAPSULE PO (16:07)
[2021-05-13 16:58] LABS: Glucose Point of Care 164 mg/dl (65-105)
[2021-05-13 20:11] LABS: Glucose Point of Care 144 mg/dl (65-105)
[2021-05-13] MEDS: SIMVASTATIN 10 MG TABLET PO (20:35)
[2021-05-14] VITALS: PULSE 72
[2021-05-14 04:00] VITALS: PULSE 73
[2021-05-14 06:00] VITALS: BP 108/54; PULSE 75; RESP 18; TEMP 36.3; O2SAT 98
[2021-05-14 08:00] VITALS: PULSE 71; O2SAT 98
[2021-05-14 08:00] LABS: Alanine Aminotransferase 23 U/L (4-50); Alkaline Phosphatase 57 U/L (38-126); Anion Gap 8 mmol/L (8-16); Aspartate Amino Transferase 32 U/L (17-59); Bilirubin,Total 0.8 mg/dL (0.2-1.3); Blood Urea Nitrogen 44 mg/dL (9-20); Calcium 8.8 mg/dL (8.4-10.2); Carbon Dioxide 31 mmol/L (22-30); Chloride 97 mmol/L (98-107); Estimated CRCL calculation 50 ml/min; Estimated Glomerular Filt Rate > 60; Glucose 103 mg/dL (65-110); Potassium 3.9 mmol/L (3.4-5.0); Sodium 136 mmol/L (137-145)
[2021-05-14 08:04] LABS: Glucose Point of Care 99 mg/dl (65-105)
[2021-05-14 08:08] LABS: Basophils Absolute Auto 0.1 K/mm3 (0.0-0.1); Eosinophils Absolute Auto 0.6 K/mm3 (0-0.3); Eosinophils Percent Auto 6.8 % (0-4.4); Hematocrit 45.8 % (42.0-52.0); Hemoglobin 14.5 g/dL (14.0-18.0); Immature Granulocyte Absolute 0.03 K/mm3 (0.00-0.031); Immature Granulocyte Percent A 0.3 % (0-0.5); Lymphocytes Absolute Auto 2.94 K/mm3 (0.9-3.2); Lymphocytes Percent Auto 34.2 % (18.3-44.2); Mean Corpuscular HGB Conc 31.7 g/dl (32-36); Mean Corpuscular Hemoglobin 28.8 pg (26-34); Mean Corpuscular Volume 90.9 fl (80-100); Monocytes Percent Auto 11.5 % (2.6-8.5); Neutrophils Percent Auto 46.2 % (45.5-73.1); Platelet Count Result 268 k/mm3 (150-375); Red Blood Count 5.04 M/mm3 (4.6-6.20); Red Cell Distribution Width 13.9 % (11.5-14.5); White Blood Count 8.6 K/mm3 (4.5-10.0)
[2021-05-14] MEDS: DOXYCYCLINE HYCLATE 100 MG TABLET PO (08:40)
[2021-05-14] MEDS: FLUoxetine HCL 20 MG CAPSULE PO (08:40)
[2021-05-14] MEDS: LORATADINE 10 MG TABLET PO (08:40)
[2021-05-14] MEDS: FUROSEMIDE 40 MG TABLET PO (08:40)
[2021-05-14] MEDS: ENOXAPARIN 40 MG/0.4 ML SYRINGE SUB-Q (08:40)
[2021-05-14] MEDS: INSULIN GLARGINE (*BKC) 100 UNITS/ML 24 UNITS SUB-Q (08:43)
--- NOTE | 2021-05-14 10:00 | PM.DS ---
DS: Admitting Diagnosis Discharge Date 05/15/2019 to Admitting Diagnosis Community-acquired pneumonia Chronic pulmonary edema Diabetes mellitus type 2 Hyperlipidemia Depression with anxiety BPH Hypertension DS: Discharge Diagnosis Discharge Diagnosis (1) Acute respiratory failure with hypoxia: Code(s): J96.01 - Acute respiratory failure with hypoxia Status: Acute Assessment and Plan: - Pt. meets acute respiratory failure with hypoxia with low oxygen saturations on presentation - Continue supplemental oxygen - Wean oxygen as able to - Home oxygen evaluation revealed the patient required 2 L of oxygen at baseline. (2) CAP (community acquired pneumonia): Qualifiers: Laterality: unspecified laterality Qualified Code(s): J18.9 - Pneumonia, unspecified organism Code(s): J18.9 - Pneumonia, unspecified organism Status: Acute Assessment and Plan: -. stop Azithromycin and Rocephin 05/09/2021 to 05/13/2021). Start doxycycline. Finish a full 10 day cours - continue to wean off oxygen - CTA of chest is performed that shows cardiomegaly, mild to moderate right basilar groundglass airspace disease most suggestive of pulmonary edema. Pneumonia is not excludable, however suspicion is low in the setting of no other immediate subjective or objective signs of infection. - ECHO performed, revealed an LVEF of 55-60% with grade 1 diastolic noncompliance. RV hypokinesis. - No PE on CTA. -repeat chest x-ray on 05/14/2021 - His blood cultures are positive for Turicella Otiditis in aerobic bottle, which is almost exclusively found in the external ear ear canal and middle ear fluid? Repeat blood cultures, deescalate antibiotics (3) BPH (benign prostatic hyperplasia): Qualifiers: Lower urinary tract symptom presence: symptoms absent Qualified Code(s): N40.0 - Benign prostatic hyperplasia without lower urinary tract symptoms Code(s): N40.0 - Benign prostatic hyperplasia without lower urinary tract symptoms Status: Chronic Assessment and Plan: Continue with tamsulosin. (4) Depression with anxiety: Code(s): F41.8 - Other specified anxiety disorders Status: Chronic Assessment and Plan: Continue Home meds (5) HLD (hyperlipidemia): Qualifiers: Hyperlipidemia type: unspecified Qualified Code(s): E78.5 - Hyperlipidemia, unspecified Code(s): E78.5 - Hyperlipidemia, unspecified Status: Chronic Assessment and Plan: Continue statin therapy. (6) Diabetes mellitus: Qualifiers: Diabetes mellitus type: type 2 Diabetes mellitus bilingual inside sales representative insulin use: with fci use Diabetes mellitus complication status: without complication Qualified Code(s): E11.9 - Type 2 diabetes mellitus without complications; Z79.4 - lookback coordinator (current) use of insulin Code(s): E11.9 - Type 2 diabetes mellitus without complications Status: Chronic Assessment and Plan: Continue SSI - Continue Hypoglycemic protocol - Continue glucose checks AC and HS - Diabetic/Cardiac Diet (7) Pulmonary edema: Qualifiers: Chronicity: acute Qualified Code(s): J81.0 - Acute pulmonary edema Code(s): J81.1 - Chronic pulmonary edema Status: Acute Assessment and Plan: Lasix dose increased to 40 mg po BID. IV furosemide stopped on 05/12/2021 - Pts Lexiscan stress test yesterday was negative for any acute ischemia. - Cardiology continuing to follow. (8) Hypertension: Qualifiers: Hypertension type: unspecified Qualified Code(s): I10 - Essential (primary) hypertension Code(s): I10 - Essential (primary) hypertension Status: Chronic Assessment and Plan: Continue with losartan. - Monitor VS. DS: Summary Hospital Course Reason for hospitalization: Acute hypoxic respiratory failure Community-acquired pneumonia Pulmonary edema Diabetes mellitus type 2 Hyperten
[2021-05-14 11:40] LABS: Glucose Point of Care 148 mg/dl (65-105)
[2021-05-14 14:00] VITALS: BP 107/57; PULSE 70; RESP 19; TEMP 36.2; O2SAT 98
--- NOTE | 2021-05-14 15:44 | PCRCNOTE ---
[facility]ME HAS ATTEMPTED TO SET UP A TIME/LOCATION TO DROP OFF LOCATION FOR THE CONCENTRATOR WELL CORRECT ACCT NUMBER FOR BILLING WITH HIS SON, HAMMAD. DME WAS ABLE TO DROP OFF 2 TANKS TO ROOM PRIOR TO D/C, BUT CONCENTRATOR HAD TO BE DELIVERED BY [employer] SECRETARY. SON WAS NOT ABLE TO GIVE A TIME AND LOCATION, OR INSURANCE INFO TO DME, STATED HE IS TOO BUSY MOVING RIGHT NOW. SON ALSO STATED THAT PT WILL NOT EVEN NEED TO O2 AFTER A DAY OR TWO, SO THEY WONT BE TAKING IT WHEN THEY TRAVEL TO [place]. DME WILL CONTINUE TO TRY TO CONTACT PT, PT. FAMILY TO ENSURE HE IS SET UP WITH PROPER O2 EQUIPMENT AND SERVICED WHILE MOVING TO [place]. CURRENTLY PT HAS 2 'E' TANKS UPON D/C, CURRENT NEEDS ARE 2 AT REST AND WITH ACTIVITY. THIS INFO HAS BEEN RELAYED TO SHAYNA ALFRED.
== END 2021-05-14 16:13 | disposition home or self-care (01) | DRG 193 ==
LOC: ANHED 13:55 → ANH3MEDSUR 15:43
PROVIDERS: Emergency Medicine; Family Medicine; Nurse Practitioner; Nurse Practitioner Adult Health; Admitting Provider Internal Medicine; Emergency Provider Nurse Practitioner Family; PCP Family Medicine; Visit Provider Nurse Practitioner Family
DX: J18.9 Pneumonia, unspecified organism (principal); J96.01 Acute respiratory failure with hypoxia; J81.0 Acute pulmonary edema; J81.1 Chronic pulmonary edema; H91.90 Unspecified hearing loss, unspecified ear; Z20.822 Contact with and (suspected) exposure to COVID-19; N40.0 Benign prostatic hyperplasia without lower urinary tract symptoms; E78.5 Hyperlipidemia, unspecified; F41.8 Other specified anxiety disorders; I10 Essential (primary) hypertension; Z95.820 Peripheral vascular angioplasty status with implants and grafts; Z87.891 Personal history of nicotine dependence; E11.51 Type 2 diabetes mellitus with diabetic peripheral angiopathy without gangrene; R94.31 Abnormal electrocardiogram [ECG] [EKG]; E87.70 Fluid overload, unspecified; Z91.19 Patient's noncompliance with other medical treatment and regimen; Z79.899 Other long term (current) drug therapy; Z79.4 Long term (current) use of insulin
CPT/HCPCS: 36415; 36600; 71045; 71275; 78452; 80048; 80053; 82805; 82948; 83036; 83605; 83735; 83880; 84439; 84443; 84480; 84484; 85025; 85610; 85730; 86140; 87040; 87076; 87804; 93005; 93017; 93306; 94618; 94640; 96374; 96375; 97161; 97165; 99285; A9270; A9502; C9803; J0456; J0696; J1650; J1815; J1940; J2785; J2930; J3475; Q9967; U0003; U0005